=== PATIENT | male | born 1985 | race Hispanic/Latino ===

== ENCOUNTER 2016-09-02 22:28 | Emergency (ER) | payer SELFPAY ==
[2016-05-31 10:23] VITALS: BMI 30.1
[2016-09-03] MEDS ORDERED: Oxycodone/Acetaminophen 5/325 mg Tab ONE (02:46)
[2016-09-03 09:28] LABS: BASO % 0.6 % (0.0-2.0); EOS # 0.2 K/uL (0.0-0.7); EOS % 3.3 % (0.0-4.0); HEMATOCRIT 38.9 % (35.0-51.0); LYMPH # 2.2 K/uL (1.0-4.3); MEAN CELL VOLUME 86.5 fL (80.0-94.0); MEAN CORPUSCULAR HEMOGLOBIN 29.2 pg (27.0-31.0); MEAN CORPUSCULAR HGB CONC 33.8 g/dL (33.0-37.0); MEAN PLATELET VOLUME 8.7 fL (7.2-11.7); MONO # 0.5 K/uL (0.0-0.8); MONO % 8.9 % (0.0-10.0); NRBC % 0.1 % (0.0-2.0); RED CELL DISTRIBUTION WIDTH 12.2 % (11.5-14.5); WHITE BLOOD COUNT 5.6 K/uL (4.8-10.8)
[2016-09-03 09:47] LABS: BLOOD UREA NITROGEN 13 mg/dL (9-20); GLUCOSE,RANDOM 85 mg/dL (75-110)
[2016-09-03 09:48] LABS: ALB/GLOB RATIO 1.7 (1.0-2.1); CARBON DIOXIDE 24 mmol/L (22-30); CHLORIDE 98 mmol/L (98-107); GFR AFRICAN-AMERICAN > 60; POTASSIUM 3.7 mmol/L (3.6-5.2); SODIUM 137 mmol/L (132-148); TOTAL PROTEIN 7.2 g/dL (6.3-8.3)
[2016-09-03 09:49] LABS: ALKALINE PHOSPHATASE 47 U/L (38-126); ALT/SGPT 31 U/L (21-72); AST/SGOT 26 U/L (17-59); BILIRUBIN,TOTAL 0.3 mg/dL (0.2-1.3)
[2016-09-03 10:01] LABS: URINE BILIRUBIN NEGATIVE (NEGATIVE); URINE BLOOD NEGATIVE (NEGATIVE); URINE COLOR YELLOW (YELLOW); URINE GLUCOSE (UA) Normal (Normal); URINE KETONE NEGATIVE (NEGATIVE); URINE PROTEIN NEGATIVE (NEGATIVE); URINE UROBILINOGEN Normal mg/dL (0.2-1.0)
[2016-09-03 10:02] LABS: RBC URINE < 1 /hpf (0-3); URINE LEUKOCYTE ESTERASE NEGATIVE Leu/uL (Negative); WBC URINE 1 /hpf (0-5)
--- NOTE | 2016-09-03 10:29 | US ---
HISTORY: LT TESTICULAR PAIN TECHNIQUE: Realtime sonography through the scrotum with color and doppler flow. COMPARISON: None available. FINDINGS: RIGHT TESTICLE: Measures 5.4 x 2.4 x 3.4 cm. Homogeneous echotexture. Blood flow was demonstrated. Tiny calcifications. RIGHT EPIDIDYMIS: Measures approximately 1.0 x 0.8 x 1.4 cm. 1 x 1 x 1 mm epididymal cyst. LEFT TESTICLE: Measures 5.5 x 2.5 x 3.4 cm. Homogeneous echotexture. Blood flow is demonstrated. Tiny calcifications. LEFT EPIDIDYMIS: Measures approximately 1.0 x 1.3 x 1.8 cm. Homogeneous echotexture. Blood flow is demonstrated. HYDROCELE: Small bilateral hydroceles. VARICOCELE: Left-sided varicocele. OTHER FINDINGS: None. IMPRESSION: Small bilateral hydroceles. Tiny bilateral epididymal cysts. Tiny calcifications within bilateral testes. Please note that presence of microlithiasis alone in absence of other risk factors is not an indication for further sonographic surveillance or biopsy. Ultrasound is recommended in follow-up of patient's with increased risk of germ cell tumor, personal or family history of germ cell tumor, maldescent or undescended testes, orchidopexy, testicular atrophy.
== END 2016-09-03 03:20 | disposition home or self-care (01) ==
LOC: C.ER 22:28
DX: M54.5 Low back pain (principal); N50.812 Left testicular pain

== ENCOUNTER 2016-11-11 08:45 | Emergency (ER) | payer SELFPAY ==
[2016-11-11 08:56] VITALS: BMI 28.7
[2016-11-11 09:00] VITALS: TEMP 98.2
--- NOTE | 2016-11-11 09:38 | C.PDOC ---
History Of Present Illness 31-YEAR-OLD MALE, PRESENTS TO THE EMERGENCY DEPARTMENT WITH COMPLAINTS OF NEW ONSET PENILE MASS SINCE THIS MORNING. NO PAIN, SWELL, DC. DENIES TESTICULAR SX. DENIES HO STD. MONOGAMOUS. LAST SEX YESTERDAY. DENIES SEX TOY USE, LATEX ALLERGY. PATIENT ALSO REPORTS NEW ONSET RASH BASE OF PENIS 2 WEEKS AGO. EXAM NAD +CIRCUMCISED. +GENITAL WARTS BASE OF PENIS. +LOCAL SWELL BELOW PENILE HEAD, DISTAL SHAFT. NO ERYTHEMA, FLUCTUANCE. NO RASH. MIN LOCAL TEND. NO PENILE DC. SCROTUM WNL MDM OFFERED TX FOR GC. ADVISED NEED TO SEE UROLOGIST FOR EVAL GENITAL WART MGMT. STD CLINIC FOR OTHER STD TESTING. Time Seen by Provider: 11/11/16 09:34 Chief Complaint (Nursing): Male Genitourinary History Per: Patient History/Exam Limitations: no limitations Onset/Duration Of Symptoms: Hrs Current Symptoms Are (Timing): Still Present Past Medical History Reviewed: Historical Data, Nursing Documentation, Vital Signs Vital Signs: Last Vital Signs Temp 98.2 F 11/11/16 08:56 Pulse 88 11/11/16 08:56 Resp 18 11/11/16 08:56 BP 133/84 11/11/16 08:56 Pulse Ox 99 11/11/16 10:44 - Medical History PMH: Denies: Chronic Kidney Disease Family History: States: No Known Family Hx - Social History Hx Alcohol Use: Yes Hx Substance Use: Yes - Immunization History Hx Tetanus Toxoid Vaccination: Yes Hx Influenza Vaccination: No Hx Pneumococcal Vaccination: No Review Of Systems Gastrointestinal: Negative for: Nausea, Vomiting Genitourinary: Positive for: Rash, Other (PENILE MASS) Physical Exam - Physical Exam Appears: Non-toxic, No Acute Distress Skin: Warm, Dry, No Rash Oral Mucosa: Moist Lips: Normal Appearing Neck: Normal ROM Respiratory: No Accessory Muscle Use Male Genital: Other ( +CIRCUMCISED. +GENITAL WARTS BASE OF PENIS. +LOCAL SWELL BELOW PENILE HEAD, DISTAL SHAFT. NO ERYTHEMA, FLUCTUANCE. NO RASH. MIN LOCAL TEND. NO PENILE DC. SCROTUM WNL) Extremity: Normal ROM ED Course And Treatment O2 Sat by Pulse Oximetry: 99 Reevaluation Time: 13:15 Reassessment Condition: Unchanged (SP EVAL DR LEYVA. DC W MEDROL AND ABX, WILL OFFICE) - Physician Consult Information Time Consulting Physician Contacted: 09:59 Physician Contacted: Milan Leyva Outcome Of Conversation: will eval in er Medical Decision Making Medical Decision Making: MDM OFFERED TX FOR GC. ADVISED NEED TO SEE UROLOGIST FOR EVAL GENITAL WART MGMT. STD CLINIC FOR OTHER STD TESTING. Disposition Counseled Patient/Family Regarding: Studies Performed, Diagnosis, Need For Followup - Disposition Referrals: Milan Leyva MD [Staff Provider] - Disposition: HOME/ ROUTINE Disposition Time: 13:16 Condition: GOOD Additional Instructions: TAKE MEDICATIONS PRESCRIBED BY DR LEYVA DIRECTED. FOLLOW UP OFFICE DIRECTED. - Clinical Impression Clinical Impression: Penile swelling - Scribe Statement The provider has reviewed the documentation as recorded by the Scribe Bethany Melo All medical record entries made by the Eliseibe were at my direction and personally dictated by me. I have reviewed the chart and agree that the record accurately reflects my personal performance of the history, physical exam, medical decision making, and the department course for this patient. I have also personally directed, reviewed, and agree with the discharge instructions and disposition.
[2016-11-11 09:55] LABS: RBC URINE 1 /hpf (0-3); URINE BILIRUBIN NEGATIVE (NEGATIVE); URINE BLOOD NEGATIVE (NEGATIVE); URINE COLOR Yellow (YELLOW); URINE GLUCOSE (UA) NORMAL (Normal); URINE KETONE TRACE mg/dL (NEGATIVE); URINE LEUKOCYTE ESTERASE NEG Leu/uL (Negative); URINE PROTEIN NEGATIVE (NEGATIVE); URINE UROBILINOGEN NORMAL mg/dL (0.2-1.0); WBC URINE 3 /hpf (0-5)
[2016-11-11 13:38] VITALS: BP 125/85; PULSE 85; RESP 16; O2SAT 98
== END 2016-11-11 13:37 | disposition home or self-care (01) ==
LOC: C.ER 08:45
DX: N48.89 Other specified disorders of penis (principal)

== ENCOUNTER 2017-03-24 09:21 | Emergency (ER) | payer SELFPAY ==
[2017-03-24 09:21] VITALS: BMI 28.7
[2017-03-24 09:33] VITALS: TEMP 99
[2017-03-24] MEDS ORDERED: Naproxen 550 mg Tab PO STA (09:50)
[2017-03-24] MEDS ORDERED: Tmp-Smz 800 mg-160 mg DS Tab PO STA (09:50)
--- NOTE | 2017-03-24 09:52 | C.PDOC ---
History Of Present Illness 31 y/o male c/o pain and swelling at right pubic area for 2 days. Patient admits to chills yesterday. Patient thinks he has ingrown hair in the area recently. Patient denies dysuria, hematuria, testicular or abdominal pain. Time Seen by Provider: 03/24/17 09:28 Chief Complaint (Nursing): Abnormal Skin Integrity History Per: Patient History/Exam Limitations: no limitations Onset/Duration Of Symptoms: Days Current Symptoms Are (Timing): Still Present Quality Of Symptoms: Painful, Swollen Severity: Mild Recent travel outside of the [place]: No Past Medical History Reviewed: Historical Data, Nursing Documentation, Vital Signs Vital Signs: Last Vital Signs Temp 99 F 03/24/17 09:32 Pulse 92 H 03/24/17 09:57 Resp 18 03/24/17 09:57 BP 119/68 03/24/17 09:57 Pulse Ox 98 03/24/17 10:59 - Medical History PMH: No Chronic Diseases Family History: States: No Known Family Hx - Social History Hx Alcohol Use: Yes Hx Substance Use: Yes - Immunization History Hx Tetanus Toxoid Vaccination: Yes Hx Influenza Vaccination: No Hx Pneumococcal Vaccination: No Review Of Systems Except As Marked, All Systems Reviewed And Found Negative. Constitutional: Negative for: Fever, Chills Respiratory: Negative for: Cough Gastrointestinal: Negative for: Vomiting Skin: Positive for: Other (pain, swelling to R pubic area). Negative for: Rash Neurological: Negative for: Weakness, Numbness Physical Exam - Physical Exam Appears: Well, Non-toxic, Other (in mild pain) Skin: Warm, Dry, Other (see genital exam) Head: Normacephalic Oral Mucosa: Moist Cardiovascular: Rhythm Regular Respiratory: Normal Breath Sounds, No Rales, No Rhonchi, No Wheezing Gastrointestinal/Abdominal: Normal Exam, Bowel Sounds, Soft, No Tenderness Back: Normal Inspection Male Genital: No Testicular Tenderness, No Testicular Swelling, No Scrotal Swelling, Other (Mons pubic right side: indurated 3.0 cm area that is tender, erythematous, with central pustule, no fluctuance.) Extremity: Normal ROM Neurological/Psych: Oriented x3 ED Course And Treatment O2 Sat by Pulse Oximetry: 98 (RA) Pulse Ox Interpretation: Normal Progress Note: Explained to patient that area is not ready for I&D at this time. Keflex and Bactrim given in the ER, and prescriptions for same given. Patient instructed to apply warm compresses to area, and return to ED if symptoms worsen. He was also instructed to follow up with PMD/clinic in 1-2 days. Reevaluation Time: 10:00 Reassessment Condition: Improved Disposition Counseled Patient/Family Regarding: Diagnosis, Need For Followup, Rx Given - Disposition Referrals: [facility] [Outside] Disposition: HOME/ ROUTINE Disposition Time: 10:00 Condition: STABLE Additional Instructions: FOLLOW UP WITH YOUR DOCTOR/CLINIC IN 1-2 DAYS USE MEDICATIONS DIRECTED APPLY WARM COMPRESSES TO AREA SEVERAL TIMES DAILY RETURN TO ER IF SYMPTOMS WORSEN Prescriptions: Cephalexin [Keflex] 500 mg PO BID #14 capsule Naproxen [Naprosyn] 1 tab PO BID PRN #25 tab PRN Reason: Pain Sulfamethoxazole/Trimethoprim [Bactrim DS 800 mg-160 mg] 1 tab PO BID #14 tab Instructions: Abscess (ED) Forms: [employer] (Somali), Work Excuse Print Language: MOROCCAN - POA Present On Arrival: None - Clinical Impression Clinical Impression: Abscess of pubic region - Scribe Statement SM All medical record entries made by the Scribe were at my direction and personally dictated by me. I have reviewed the chart and agree that the record accurately reflects my personal performance of the history, physical exam, medical decision making, and the department course for this patient. I have also personally directed, reviewed, and agree with the discharge instructions and disposition.
[2017-03-24] MEDS ORDERED: Tmp-Smz 800 mg-160 mg DS Tab ONE (09:55)
[2017-03-24] MEDS ORDERED: Naproxen 550 mg Tab PO ONE (09:55)
[2017-03-24 10:00] VITALS: BP 119/68; PULSE 92; RESP 18
[2017-03-24 10:58] VITALS: O2SAT 98
== END 2017-03-24 09:59 | disposition home or self-care (01) ==
LOC: C.ER 09:21 → SUPCPDRO 09:21 → C.ER 09:59
DX: L02.818 Cutaneous abscess of other sites (principal)

== ENCOUNTER 2017-06-15 10:18 | Emergency (ER) | payer OTHER ==
[2017-06-15 10:42] VITALS: BMI 30.1
[2017-06-15 10:45] VITALS: RESP 18
[2017-06-15] MEDS ORDERED: Naproxen 550 mg Tab PO STA (11:15)
[2017-06-15] MEDS ORDERED: Tmp-Smz 800 mg-160 mg DS Tab PO STA (11:15)
[2017-06-15] MEDS ORDERED: Tmp-Smz 800 mg-160 mg DS Tab ONE (11:20)
[2017-06-15] MEDS ORDERED: Naproxen 550 mg Tab PO ONE (11:21)
--- NOTE | 2017-06-15 11:30 | C.PDOC ---
History Of Present Illness 32-year-old male, presents to the emergency department with complaints of an ingrown toenail to left great toe for the past week. He states the area is painful and malodorous. He denies fever, sensory changes, injuries. Time Seen by Provider: 06/15/17 10:45 Chief Complaint (Nursing): Lower Extremity Problem/Injury History Per: Patient History/Exam Limitations: no limitations Onset/Duration Of Symptoms: Days Current Symptoms Are (Timing): Still Present Severity: Mild Past Medical History Reviewed: Historical Data, Nursing Documentation, Vital Signs Vital Signs: Last Vital Signs Temp 97.6 F 06/15/17 11:58 Pulse 75 06/15/17 11:58 Resp 18 06/15/17 11:58 BP 123/82 06/15/17 11:58 Pulse Ox 100 06/15/17 16:48 - Medical History PMH: No Chronic Diseases Family History: States: No Known Family Hx - Social History Hx Alcohol Use: Yes Hx Substance Use: Yes - Immunization History Hx Tetanus Toxoid Vaccination: Yes Hx Influenza Vaccination: No Hx Pneumococcal Vaccination: No Review Of Systems Except As Marked, All Systems Reviewed And Found Negative. Constitutional: Negative for: Fever, Chills Skin: Positive for: Other ([place] toenail. left toe). Negative for: Rash Neurological: Negative for: Weakness, Numbness Physical Exam - Physical Exam Appears: Well, Non-toxic, No Acute Distress Skin: Normal Color, Warm, Dry, Other (see extremity exam) Cardiovascular: Rhythm Regular Respiratory: Normal Breath Sounds, No Rales, No Rhonchi, No Wheezing Extremity: Capillary Refill (< 2 sec all digits ), Other (Left great toe: medial aspect of nailbed with erythema and mild swelling, tender to palpation, eshcar present, No fluctuance/induration. ) Neurological/Psych: Oriented x3, Normal Sensation Gait: Steady ED Course And Treatment O2 Sat by Pulse Oximetry: 100 (on RA) Pulse Ox Interpretation: Normal Progress Note: Patient given PO Naprosyn, Bactrim and Keflex. He was given Rxs for same, instructed to apply warm compresses to area and to follow up with steam fitter within 1 week. He understands he should return to ED if symptoms worsen. Disposition Counseled Patient/Family Regarding: Diagnosis, Need For Followup, Rx Given - Disposition Referrals: [facility] [Outside] Disposition: HOME/ ROUTINE Disposition Time: 11:30 Condition: STABLE Additional Instructions: FOLLOW UP WITH PODIATRY WITHIN 1 WEEK APPLY WARM COMPRESSES TO AREA SEVERAL TIMES DAILY RETURN TO ER IF SYMPTOMS WORSEN Prescriptions: Cephalexin [Keflex] 500 mg PO BID #14 capsule Naproxen 375 mg PO BID PRN #20 tablet PRN Reason: pain Sulfamethoxazole/Trimethoprim [Bactrim DS 800 mg-160 mg] 1 tab PO BID #14 tab Instructions: Paronychia (ED), Ingrown Nail (ED) Forms: [employer] (Greek) Print Language: MOHAWK - Clinical Impression Clinical Impression: Paronychia, Ingrown nail - Scribe Statement The provider has reviewed the documentation as recorded by the Scribe (Bethany Melo) All medical record entries made by the Scribe were at my direction and personally dictated by me. I have reviewed the chart and agree that the record accurately reflects my personal performance of the history, physical exam, medical decision making, and the department course for this patient. I have also personally directed, reviewed, and agree with the discharge instructions and disposition.
[2017-06-15 12:00] VITALS: BP 123/82; PULSE 75; TEMP 97.6
[2017-06-15 13:32] VITALS: O2SAT 100
== END 2017-06-15 12:05 | disposition home or self-care (01) ==
LOC: C.ER 10:18
DX: L60.0 Ingrowing nail (principal); L03.032 Cellulitis of left toe

== ENCOUNTER 2017-10-05 22:11 | Emergency (ER) | payer OTHER ==
[2017-10-05 22:11] VITALS: BMI 30.1
[2017-10-05 22:23] VITALS: BP 135/85; PULSE 73; RESP 18; TEMP 98; O2SAT 99
--- NOTE | 2017-10-06 00:36 | C.PDOC ---
History Of Present Illness 32 year old male presents to the emergency department with complaints of pain to his right lower back which is radiating to his right buttock and posterior thigh, persisting for the last three days. Patient reports that he currently taking nothing for his pain and has a past history of the same pain prior. Denies weakness, numbness, incontinence Time Seen by Provider: 10/05/17 23:34 Chief Complaint (Nursing): Back Pain History Per: Patient History/Exam Limitations: no limitations Onset/Duration Of Symptoms: Days (3) Current Symptoms Are (Timing): Still Present Quality Of Discomfort: "Pain" Previous Symptoms: Back Pain Past Medical History Reviewed: Historical Data, Nursing Documentation, Vital Signs Vital Signs: Last Vital Signs Temp 98 F 10/05/17 22:20 Pulse 73 10/05/17 22:20 Resp 18 10/05/17 22:20 BP 135/85 10/05/17 22:20 Pulse Ox 99 10/06/17 05:35 - Medical History PMH: Back Problems Denies: Chronic Kidney Disease Surgical History: No Surg Hx Family History: States: No Known Family Hx - Social History Hx Alcohol Use: Yes Hx Substance Use: Yes (MARIJUANA) - Immunization History Hx Tetanus Toxoid Vaccination: Yes Hx Influenza Vaccination: No Hx Pneumococcal Vaccination: No Review Of Systems Musculoskeletal: Positive for: Back Pain, Leg Pain Physical Exam - Physical Exam Appears: Non-toxic, No Acute Distress Cardiovascular: Rhythm Regular Respiratory: Normal Breath Sounds Gastrointestinal/Abdominal: Normal Exam, Soft, No Tenderness Back: Paraspinal Tenderness, Straight Leg Raising (positive on right leg at 40 degrees) Neurological/Psych: Oriented x3, Normal Speech, Normal Cognition Gait: Steady ED Course And Treatment O2 Sat by Pulse Oximetry: 99 (RA) Pulse Ox Interpretation: Normal Progress Note: Plan: Flexeril 10mg PO. Toradol 30mg IM Disposition Counseled Patient/Family Regarding: Diagnosis, Need For Followup, Rx Given - Disposition Referrals: [facility] [Outside] Disposition: HOME/ ROUTINE Disposition Time: 00:34 Condition: STABLE Additional Instructions: Take meds as prescribed Follow up with PMD or clinic for further evaluation Return to ER if worse Prescriptions: Cyclobenzaprine [Cyclobenzaprine HCl] 10 mg PO HS #7 tab Ibuprofen [Motrin] 600 mg PO Q6H #30 tab Instructions: Sciatica (DC) Forms: [employer] (Polish), Work Excuse - Clinical Impression Clinical Impression: Sciatic nerve pain - 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 - Scribe Statement The provider has reviewed the documentation as recorded by the Scribe (Marlon Muñoz) All medical record entries made by the Scribe were at my direction and personally dictated by me. I have reviewed the chart and agree that the record accurately reflects my personal performance of the history, physical exam, medical decision making, and the department course for this patient. I have also personally directed, reviewed, and agree with the discharge instructions and disposition.
== END 2017-10-06 00:41 | disposition home or self-care (01) ==
LOC: SUPCPDRO 22:11 → C.ER 22:11
DX: M54.31 Sciatica, right side (principal)
CPT/HCPCS: 96372; 99283; J1885

== ENCOUNTER 2018-01-07 09:26 | Emergency (ER) | payer OTHER ==
[2018-01-07 09:26] VITALS: BMI 30.1
[2018-01-07 09:35] VITALS: BP 153/83; PULSE 69; RESP 16; TEMP 97.6; O2SAT 98
--- NOTE | 2018-01-07 09:39 | C.PDOC ---
History Of Present Illness 32 y/o male, otherwise well, presents to the ED concerned for possible conjunctivitis in the left eye. Patient reports that someone at work had conjunctivitis a couple of days ago and was sent home. Today he woke up with crusting to the left eye and itching. He reports having conjunctivitis previously during childhood, but none since. Otherwise he denies any visual changes, redness, foreign body, trauma to eye, or fever. Time Seen by Provider: 01/07/18 09:37 Chief Complaint (Nursing): Eye Problem History Per: Patient History/Exam Limitations: no limitations Onset/Duration Of Symptoms: Hrs Current Symptoms Are (Timing): Still Present Injury To Eye?: No Associated Symptoms: Itching, Discharge From Eye Past Medical History Reviewed: Historical Data, Nursing Documentation, Vital Signs Vital Signs: Last Vital Signs Temp 97.6 F 01/07/18 09:34 Pulse 69 01/07/18 09:34 Resp 16 01/07/18 09:34 BP 153/83 H 01/07/18 09:34 Pulse Ox 98 01/07/18 09:39 - Medical History PMH: Back Problems Denies: Chronic Kidney Disease Other Surgeries: Left knee surgery Family History: States: Unknown Family Hx - Social History Hx Alcohol Use: Yes Hx Substance Use: Yes (MARIJUANA) - Immunization History Hx Tetanus Toxoid Vaccination: Yes Hx Influenza Vaccination: No Hx Pneumococcal Vaccination: No Review Of Systems Except As Marked, All Systems Reviewed And Found Negative. Constitutional: Negative for: Fever, Chills Eyes: Positive for: Other (left eye crusting and itching). Negative for: Vision Change Gastrointestinal: Negative for: Nausea, Vomiting Neurological: Negative for: Headache Physical Exam - Physical Exam Appears: Non-toxic, No Acute Distress Skin: Normal Color, Warm, Dry Head: Atraumatic, Normacephalic Eye(s): bilateral: Normal Inspection (with no discharge, crusting, or conjunctival injection), PERRL, EOMI Nose: Normal Oral Mucosa: Moist Neck: Normal ROM, Supple Chest: Symmetrical Extremity: Bilateral: Atraumatic, Normal Color And Temperature, Normal ROM Neurological/Psych: Oriented x3, Normal Speech, Normal Cranial Nerves Gait: Steady ED Course And Treatment O2 Sat by Pulse Oximetry: 98 (RA) Pulse Ox Interpretation: Normal Medical Decision Making Medical Decision Making: Impression: Eye irritation Plan: Patient reassured of normal exam findings. Bacitracin applied at patient's request. Patient is medically stable and will be discharged home with prescription for Bacitracin. Disposition Counseled Patient/Family Regarding: Need For Followup, Rx Given - Disposition Disposition: HOME/ ROUTINE Disposition Time: 09:37 Condition: STABLE Prescriptions: Bacitracin [Bacitracin Opht OINT] 1 applic OS BID #1 tube Forms: [facility] (Armenian), General Discharge Instructions - POA Present On Arrival: None - Clinical Impression Clinical Impression: Eye irritation - Scribe Statement The provider has reviewed the documentation as recorded by the Scribe (Ashwini Chapman) Provider Attestation: All medical record entries made by the Scribe were at my direction and personally dictated by me. I have reviewed the chart and agree that the record accurately reflects my personal performance of the history, physical exam, medical decision making, and the department course for this patient. I have also personally directed, reviewed, and agree with the discharge instructions and disposition.
== END 2018-01-07 09:47 | disposition home or self-care (01) ==
LOC: C.ER 09:26
DX: H57.8 Other specified disorders of eye and adnexa (principal)